=== PATIENT | male | born 1960 | race Caucasian/White ===

== ENCOUNTER → 2017-12-07 08:10 | Outpatient (CLI) | payer OTHER, SELFPAY ==
[2017-12-07 10:48] LABS: Anion Gap 9 (5-15); BUN 17 mg/dL (7-18); BUN/Creat Ratio 20.8 RATIO (10-20); Calcium,Total 8.9 mg/dL (8.5-10.1); Chloride 105 mmol/L (98-107); Cholesterol 212 mg/dL (200); Creatinine, Serum 0.82 mg/dL (0.70-1.30); EST Glomerular Filtration Rate 103 mL/min (>60); Est Glom Filt Rate - Afr Amer 124 mL/min (>60); Glucose 132 mg/dL (74-106); High Density Lipoprotein 43 mg/dL; PSA,Total - Annual Screen 2.24 ng/mL (0.00-4.00); Potassium 3.9 mmol/L (3.5-5.1); Sodium Level 136 mmol/L (136-145); Triglycerides 81 mg/dL; Very Low Density Lipoprotein 16 mg/dL (5-40)
== END ==
PROVIDERS: Family Provider Family Medicine; PCP Family Medicine; Visit Provider Family Medicine
DX: Z00.00 Encounter for general adult medical examination without abnormal findings (principal); N52.9 Male erectile dysfunction, unspecified
CPT/HCPCS: 36415; 80048; 80061; 84153; 84403; G0103

== ENCOUNTER → 2018-03-21 15:54 | Outpatient (CLI) | payer OTHER, SELFPAY ==
--- NOTE | 2018-03-21 | LES_PTH ---
PATIENT: ANA SONG LOC: [facility] U#:[id number] AGE/SX: 65/M ROOM: RE03/21/[address]: Dr. Eric Roa MD : 1960 BED: DIS: SPEC #: [id number] RECD: 03/22/18 13:21 STATUS: ZACH AGARWALShanthi #: [id number] JOE: 03/21/18 00:[address]: Eric Roa DEPT: SURGICAL PATHOLOGY RECD BY: Rashel Mg Tissues: A - Skin of back, NOS B - Skin of back, NOS C - Skin of back, NOS Procedures: Surgery Specimen Level IV HEADER OPERATION: Removal of three lesions, back and left side PRE-OP DIAGNOSIS: Neoplasm TISSUE SUBMITTED: A ? Upper back lesion, medial, B ? Upper back lesion, lateral, C ? Left lateral side lesion MICROSCOPIC DIAGNOSIS A. Upper back lesion, medial, shave biopsy: Seborrheic keratosis. B. Upper back lesion, lateral, shave biopsy: Actinic keratosis with focal verrucous features. C. Left lateral lesion, shave biopsy: Seborrheic keratosis. DANYELLE:winter 03/26/18 MICROSCOPIC DESCRIPTION Slides are reviewed. GROSS DESCRIPTION A - Received in fixative is one container labeled with the patient's name and designated upper back lesion medial. The specimen consists of a round piece of soliz-white skin measuring 0.6 x 0.5 x 0.1 cm. The specimen is inked and submitted in one cassette. It will be bisected at the time of embedding. B - Received in fixative is one container labeled with the patient's name and designated upper back lesion lateral. The specimen consists of a round piece of soliz-white skin measuring 0.5 x 0.5 x 0.1 cm. Also present in the specimen is a round piece of soliz-white skin measuring 0.4 x 0.4 x 0.1 cm. The larger piece is bisected. The entire specimen is submitted in one cassette. C - Received in fixative is one container labeled with the patient's name and designated left lateral side lesion. The specimen consists of a piece of soliz-white skin measuring 0.8 x 0.5 x 0.2 cm. The specimen is inked and submitted entirely in one cassette. It will be serially sectioned at the time of embedding. / DANYELLE:winter 03/22/18 TC:1 CPT: 70857 x3
== END ==
PROVIDERS: Family Provider Family Medicine; PCP Family Medicine; Visit Provider Family Medicine
DX: D49.9 Neoplasm of unspecified behavior of unspecified site (principal)
CPT/HCPCS: 88305

== ENCOUNTER → 2019-07-23 08:21 | Outpatient (CLI) | payer OTHER, SELFPAY ==
[2019-07-23 10:34] LABS: Anion Gap 4 (5-15); BUN 17 mg/dL (7-18); BUN/Creat Ratio 22.8 RATIO (10-20); Calcium,Total 8.8 mg/dL (8.5-10.1); Chloride 111 mmol/L (98-107); Cholesterol 194 mg/dL (200); Creatinine, Serum 0.74 mg/dL (0.70-1.30); EST Glomerular Filtration Rate 114 mL/min (>60); Est Glom Filt Rate - Afr Amer 138 mL/min (>60); Glucose 119 mg/dL (74-106); High Density Lipoprotein 40 mg/dL; Potassium 4.1 mmol/L (3.5-5.1); Sodium Level 140 mmol/L (136-145); Triglycerides 72 mg/dL; Very Low Density Lipoprotein 14 mg/dL (5-40)
== END ==
PROVIDERS: Family Provider Family Medicine; PCP Family Medicine; Referring Provider Family Medicine; Visit Provider Family Medicine
DX: I10 Essential (primary) hypertension (principal)
CPT/HCPCS: 36415; 80048; 80061

== ENCOUNTER 2020-04-26 09:42 | Day surgery (SDC) | payer OTHER, SELFPAY ==
[2020-04-15 08:30] VITALS: BMI 27.3
--- NOTE | 2020-04-15 09:07 | HP_ITS ---
Intake Vital Signs 04/15/20 Height 5 ft 11 in 04/15/20 Weight: 196 lb 04/15/20 BP 190/116 H 04/15/20 Blood Pressure Location Rt brachial 04/15/20 Position Sitting 04/15/20 Respiration 18 04/15/20 Pulse 86 04/15/20 Pulse Source Monitor 04/15/20 Temp 98.3 F 04/15/20 Temp Source Temporal 04/15/20 Pulse Oximetry (%) 98 04/15/20 Oxygen Delivery Method room air Intake Visit Reasons: R Inguinal Hernia Subassembler Required: No Is patient in pain?: No (Right groin pain- on and off) Allergies No Known Allergies Allergy (Verified 04/15/20 08:31) Medications metoprolol tartrate 25 mg tablet 25 mg PO BID tab 04/15/20 [History Confirmed 04/15/20] tadalafil 10 mg tablet 10 mg PO DAILY PRN tab 04/15/20 [History Confirmed 04/15/20] PFSH Medical History Right groin pain (Acute) ED (erectile dysfunction) (Acute) Hypertension (Chronic) Surgical History Hx of colonoscopy (Acute) Hx of left inguinal hernia repair (Acute) Family History Mother Breast cancer Cancer skin Father Heart disease Social History (Updated 04/15/20 @ 09:[address] Nathaly Do MD) Smoking Status: Current every day smoker tobacco type: cigarettes alcohol intake: current alcohol intake frequency: 0-2 drinks per day Alcohol type: hard liquor substance use type: does not use caffeine: Yes what type of physical activity do you participate in: none frequency: does not exercise HPI HPI HPI: ANA SONG, is a 60 M who presents to the office today for HPI HPI Surgical H&P: Yes HPI: ANA SONG, is a 60 M who presents to the office today for right inguinal hernia. Patient states he noticed it about in November it is reducible. Patient states the pain can range from a 5?8/10. Patient denies any nausea or vomiting and has been having bowel function. 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 Currently he is not lifting as part of his job however he does state that even with increased standing he does cause him discomfort. Patient previously had a left inguinal hernia repair open in 96 and stated postoperatively he had pain for 7 to 8 weeks. Patient states he has not been taking his blood pressure medicine the metoprolol 25 mg p.o. twice daily as scheduled and may be only had it once over the last couple days. Patient's blood pressure in office was 190s and 200 for systolic. ROS General General: No weight change, appetite, fatigue, colon cancer, breast cancer or weakness HEENT HEENT: No difficulty swallowing, eye injury, eye surgery, swollen glands or hoarseness Endo Endocrine: No thyroid disease, diabetes mellitus, thyroid cancer, Hair loss, heat intolerance or cold intolerance Skin Skin: No rash or changing moles Musc Musculoskeletal: No back problems, arthritis, rheumatoid arthritis, gout or joint pain Cardio Cardiovascular: Yes high blood pressure; no murmur, pacemaker, heart disease, atrial fibrillation, heart attack, heart stent, palpitations, shortness of breat with exertion or chest pain Psych Psychiatric: No depression, anxiety or hearing voices Resp Respiratory: No shortness of breath, No sleep apnea, No cough, No COPD, No asthma, No emphysema, No wheezing Gastro Gastrointestinal: No abdominal pain, No nausea or vomiting, No diarrhea, No constipation, No blood in stool, No acid reflux, No hemorrhoids, No ulcers, No gallbladder problem, No black,tarry stools Dick Hematologic: No blood thinners, No blood disorders, No bleeding, No anemia, No blood clots Neuro Neurologic: No weakness Exam Const General: cooperative, comfortable, no acute distress Resp Effort & Inspection: normal respiratory effort Cardio Rate: regular rate Heart Sounds: no murmurs GI Inspection: non-distended Palpation: soft, nontender Other: Left groin well-healed incision, no hernia on exam, right groin reducible inguinal hernia, mild tenderness palpation Assessment & Plan Problems 1. Right inguinal hernia K40.90 2. HTN (hypertension) I10 Plan Plan to do a laparoscopic right inguinal hernia repair with mesh. Reviewed the procedure with the patient including the risks, including but not limited to infection, bleeding, paresthesia, chronic pain, injury to small bowel or contents of the spermatic cord, and recurrence. All questions were answered. Discussed with patient the importance of taking his blood pressure medicine as scheduled. Discussed that if he presents to surgery with systolics in the 200s he may be canceled. Patient states he will be taking his metoprolol twice a day. Nathaly Do M.D. Pager: [phone] [facility] [address] [place] [address], [facility], [address] [place] [address] Office: [phone] Plan Detail Follow Up will schedule hernia repair Coding Level of Care Code Off vis,new,level 3 Diagnoses Right inguinal hernia K40.90 HTN (hypertension) I10 04/15/20 0907 <Electronically signed by Nathaly Elizabeth am, MD> Date _ Nathaly Do MD I have re-examined the patient. There are no clinical changes since date of exam. Procedure: Elective We discussed the current risks associated with COVID-19. While it is understood that there is a community spread of COVID-19, the risk of jose carlos COVID-19 while at [facility] ([facility]) is very low; however, the risk cannot be completely mitigated because of the community spread of the disease. We discussed in detail the risk of exposure to and/or potential harm posed by the COVID-19 virus with having a surgery/procedure at this time versus the risk of delaying the surgery/procedure. It is not possible to know either the risk of delaying the surgery or procedure or chance of getting an infection with perfect accuracy, but a joint decision was made to proceed at this time with the scheduled surgery/procedure as indicated on the consent form. Patient was notified that we will need to comply with any screening or testing [facility] wishes to perform or that surgery may be delayed for any positive results.
[2020-04-26] VITALS (8 sets, daily range): BP systolic 139–178; BP diastolic 71–96; PULSE 55–66; RESP 16–18; TEMP 36.1–37.1; O2SAT 92–99; BMI 27.1
[2020-04-26 10:25] LABS: Hemoglobin 16.1 g/dL (13.0-16.5); Mean Corp Hgb Conc 32.9 g/dL (32-36); Mean Corpuscular Hgb 32.7 pg (27.0-32.0); Mean Corpuscular Volume 99.4 fL (80-94); Platelet Count 277 K/mm3 (150-450); RBC Distribution Width CV 13.7 % (11.6-14.6); RBC Distribution Width SD 50.3 fl (35.1-43.9); Red Blood Count 4.93 M/mm3 (4.6-6.2); White Blood Count 6.8 K/mm3 (4.4-11.0)
[2020-04-26] MEDS: Lactated Ringers 1,000 ML 100 ML IV ×2 (10:30→14:32)
--- NOTE | 2020-04-26 11:20 | EKG12_ITS ---
Test Reason : PRE-OP Blood Pressure : / mmHG Vent. Rate : 057 BPM Atrial Rate : 057 BPM P-R Int : 154 ms QRS Dur : 100 ms QT Int : 442 ms P-R-T Axes : 047 066 065 degrees QTc Int : 430 ms Sinus bradycardia Otherwise normal ECG When compared with ECG of 02-DEC-2007 09:35, MANUAL COMPARISON REQUIRED, DATA IS UNCONFIRMED Confirmed by GERARDO GONCALVES ([id number]), production editor AMITA BUTCHER ([id number]) on 04/29/2020 12:05:19 PM Referred By: Nathaly Do Confirmed By:GERARDO GONCALVES
[2020-04-26] MEDS: Cefazolin 2 GM in 0.9% Normal Saline 100 ML IV (11:55)
[2020-04-26] MEDS: Bupivacaine Mpf 0.5% 30 ML VIAL (13:20)
--- NOTE | 2020-04-26 13:24 | PCM.OPRPT ---
Report of Operation Date of Procedure: 04/26/20 Pre-Operative Diagnosis: Right inguinal hernia Post-Operative Diagnosis: Same Surgery/Procedure Performed:: Laparoscopic right inguinal hernia repair with mesh education professional: Christi Perdue Type of Anesthesia:: General/Supplemental Anesthesiologist: Altaf Lopez Special Medications: Ancef 2 g IV x1 Specimen's removed: None Estimated Blood Loss (mL): < 10 cc Fluids Replaced: 1500 cc Description of Procedure: Indications: 60-year-old male presented with right inguinal hernias which was symptomatic. Laparoscopic right inguinal hernia repair with mesh was elected patient was agreeable. Description of procedure: Patient was brought to operating room placed supine operative table. Timeout was completed verifying correct patient, procedure, site, positioning, special, prior to beginning procedure. General anesthesia was induced. Rondon catheter was placed. Patient's arms were tucked and padded appropriately. Abdomen was prepped and draped in usual sterile fashion. Midline supraumbilical incision was made with a 15 blade scalpel. The fascia was elevated and incised. Entry into the abdomen was confirmed visually. The Portillo trocar was placed. Laparoscope was placed. Verifying no injury during initial trocar placement. Patient was placed in Trendelenburg position. Two 5 mm trochars were placed lateral to the rectus sheath under direct visualization. Both the inguinal regions were inspected. There is noted to be a right inguinal hernia, no obvious left inguinal hernia- repaired with previous open repair. The median umbilical ligament on the right was divided sharply with electrocautery. Peritoneum was incised with the endoscopic scissors along a line 2 cm above the superior edge of the hernia defect extending from the median umbilical ligament to anterior superior iliac spine. Peritoneal flap was mobilized inferiorly using blunt and sharp dissection. The inferior epigastric vessels were exposed and symphysis pubis and identified. Jeremy's ligament was identified. Dissection was continued inferiorly to the iliopubic track with care taken to avoid injury to the femoral branch of the genitofemoral nerve and lateral femoral cutaneous nerve. The cord structures were skeletonized. The indirect hernia sac was noted and mobilized from the cord structures and reduced into the peritoneal cavity. A large size Bard 3D max mesh right was used. The mesh was rolled longitudinally into a compact cylinder and passed through the trocar. The cylinder was placed along the inferior aspect of the working space and unrolled into place to completely cover the direct, indirect and femoral spaces. The mesh was secured in place medially to Jeremy's ligament using the securestrap as well as to the anterior abdominal wall. The peritoneum was also secured back in place using the secure strap. Care was taken to avoid the inferolateral triangle containing iliac vessels and genital nerves. After ensuring adequate hemostasis, the trochars were removed and pneumoperitoneum allowed to escape. The supraumbilical trocar incision was closed with a 0 Vicryl figure of eight suture. The skin was closed with 4-0 Monocryl interrupted sutures and Steri-Strips. Patient's testicles are also confirmed in the scrotum bilaterally. Patient tolerated procedure well was taken to the postanesthesia care unit in stable condition. Grafts/Implants Used: Right large Bard 3D max lot [id number] ref [id number] Grafts/Implants Used: Right large Bard 3D max (lot [id number] ref [id number]) - Complications none
--- NOTE | 2020-04-26 14:15 | DCINST_ITS ---
Discharge Diet: Light diet - advance as tolerated Discharge Activity: May not drive while taking narcotic pain medications. May shower in (days): 1 Ice area for (Minutes): 20 - PRN Lifting Restrictions: No lifting greater than 20 pounds x 2 weeks Additional Activity Instructions:: Okay to walk and do steps Call your doctor if your incision/area has: Continuous Slow Oozing, Sudden Increased Bleeding, Increased Pain/ Swelling, Increased Redness, Foul Smelling Discharge, Swelling at the incision site Call your doctor if you observe: Fever of 101 or Higher Remove Dressing in (days):: 1 - Okay to remove OpSite tomorrow keep Steri-Strips on for 7 to 10 days until they fall off okay to remove after 10 days. Additional Instructions: Okay to take ibuprofen 400-600 (can go up to 800 if needed-for short term only) mg PO q6hr PRN along with the Percocet. Avoid Tylenol since there is already Tylenol in the Percocet. Take all pain meds with food. Percocet can cause constipation recommend taking daily stool softener (i.e. Colace/docusate) while taking the pain meds. Recommend starting some MiraLAX in 1 to 2 days if no bowel movement. If still no bowel movement following day recommend taking magnesium citrate half the bottle and waiting 4-6 hours if still no results take the other half the bottle. OK to return to work 05/10/20, will have f/u appt week of May 03- call to make appt Allergies/Adverse Reactions: Allergies No Known Allergies Allergy (Verified 04/26/20 09:54) Medications to take at Discharge metoprolol tartrate 25 mg tablet 25 mg PO BID tab 04/15/20 tadalafil 10 mg tablet 10 mg PO DAILY PRN tab 04/15/20 Oxycodone HCl/Acetaminophen [Percocet 5/325] 1 - 2 tab PO Q6H PRN PRN 6 Days #30 tab 04/26/20 The following prescriptions were given: Oxycodone HCl/Acetaminophen [Percocet 5/325] 1 - 2 tab PO Q6H PRN PRN 6 Days #30 tab PRN Reason: Pain Transmission Status: Received by [facility] Primary Care Physician: Eric Roa MD [Primary Care Provider] - Test Results: Test results from this visit will be discussed in further detail at your follow- up appointment, if applicable. Please Follow Up With: Nathaly Do MD - After 5 PM and on the weekends call [phone]. When: Call the office for a follow-up appointment in 2 weeks from surgery Proposed Discharge Date: 04/26/20
[2020-04-26] MEDS: Acetaminophen 325 MG Tablet PO (15:15)
[2020-04-26] MEDS: oxyCODONE 5 MG Tablet PO (15:15)
== END 2020-04-26 16:03 | disposition home or self-care (01) ==
LOC: SDC 09:51 → AC 10:02
PROVIDERS: Anesthesiology; PCP Family Medicine; Referring Provider Surgery; Visit Provider Surgery
PROC: (CPT 49650; principal; 2020-04-26 11:10)
DX: K40.90 Unilateral inguinal hernia, without obstruction or gangrene, not specified as recurrent (principal); I10 Essential (primary) hypertension; Z11.59 Encounter for screening for other viral diseases; F17.210 Nicotine dependence, cigarettes, uncomplicated; Z79.899 Other long term (current) drug therapy
CPT/HCPCS: 00840; 49650; 36415; 85027; 87635; 93005; G2023; J7120; C1781; J2405; U0003

== ENCOUNTER → 2020-10-04 | Outpatient (CLI) | payer OTHER, SELFPAY ==
[2020-04-26 10:08] VITALS: BMI 27.1
== END | disposition home or self-care (01) ==
PROVIDERS: PCP Family Medicine; Visit Provider Family Medicine
DX: U07.1 COVID-19 (principal)
CPT/HCPCS: 87635; U0003

== ENCOUNTER → 2021-04-22 10:53 | Outpatient (CLI) | payer OTHER, SELFPAY ==
[2020-04-26 10:08] VITALS: BMI 27.1
[2021-04-22 12:57] LABS: Vitamin D,25 Hydroxy 24.4 ng/mL
[2021-04-22 13:09] LABS: ALB/GLOB Ratio 0.9 RATIO (0.9-2.4); AST(SGOT) 23 U/L (15-37); Alanine Aminotransfer ALT/SGPT 21 U/L (16-61); Albumin, Serum 3.6 g/dL (3.2-5.0); Alkaline Phosphatase 60 U/L (45-117); Anion Gap 8 (5-15); BUN 13 mg/dL (7-18); BUN/Creat Ratio 14.7 RATIO (10-20); Calcium,Total 8.7 mg/dL (8.5-10.1); Chloride 108 mmol/L (98-107); Cholesterol 245 mg/dL (200); Creatinine, Serum 0.88 mg/dL (0.70-1.30); EST Glomerular Filtration Rate 93 mL/min (>60); Est Glom Filt Rate - Afr Amer 113 mL/min (>60); Globulin 4.1 g/dL (2.2-4.2); Glucose 93 mg/dL (74-106); High Density Lipoprotein 40 mg/dL; PSA,Total - Annual Screen 0.95 ng/mL (0.00-4.00); Potassium 3.7 mmol/L (3.5-5.1); Protein, Total 7.7 g/dL (6.4-8.2); Sodium Level 140 mmol/L (136-145); Triglycerides 158 mg/dL; Very Low Density Lipoprotein 32 mg/dL (5-40)
== END ==
PROVIDERS: PCP Family Medicine; Referring Provider Family Medicine; Visit Provider Family Medicine
DX: Z00.00 Encounter for general adult medical examination without abnormal findings (principal)
CPT/HCPCS: 36415; 80053; 80061; 82306; 84153; 84403; G0103

== ENCOUNTER → 2021-09-05 | Outpatient (CLI) | payer OTHER, SELFPAY | END | disposition home or self-care (01) | PROVIDERS: PCP Family Medicine; Visit Provider Family Medicine | DX: Z20.822 Contact with and (suspected) exposure to COVID-19 (principal) | CPT/HCPCS: 87635; U0005; U0003 ==

== ENCOUNTER → 2023-10-01 | Outpatient (CLI) | payer OTHER, SELFPAY ==
[2023-10-01 18:03] LABS: Absolute Lymphocyte Count 2.27 X10^3/uL (0.83-4.51); Absolute Neutrophil Count 5.1 X10^3/uL (2.0-7.7); Basophil# 0.04 X10^3/uL; Basophil% 0.5 % (0-1); Eosinophil# 0.17 X10^3/uL; Hematocrit 45.6 % (40-54); Hemoglobin 15.3 g/dL (13.0-16.5); Lymphocyte # 2.27 X10^3/ul (0.83-4.51); Lymphocyte % 26.9 % (19-41); Mean Corp Hgb Conc 33.6 g/dL (32-36); Mean Corpuscular Hgb 33.6 pg (27.0-32.0); Mean Corpuscular Volume 100.2 fL (80-94); Mean Platelet Vol. 9.8 fl (6.2-12.0); Monocyte# 0.84 X10^3/uL; NRBC Flagged by Analyzer 0 % (0-5); Neutrophil # 5.07 X10^3/uL (2.7-7.7); Platelet Count 258 K/mm3 (150-450); RBC Distribution Width CV 13.2 % (11.6-14.6); RBC Distribution Width SD 48.9 fl (35.1-43.9); Red Blood Count 4.55 M/mm3 (4.6-6.2); White Blood Count 8.4 K/mm3 (4.4-11.0)
[2023-10-01 18:19] LABS: ALB/GLOB Ratio 0.8 RATIO (0.9-2.4); AST(SGOT) 26 U/L (15-37); Alanine Aminotransfer ALT/SGPT 20 U/L (16-61); Albumin, Serum 3.3 g/dL (3.2-5.0); Alkaline Phosphatase 54 U/L (45-117); Anion Gap 7 (5-15); BUN 10 mg/dL (7-18); BUN/Creat Ratio 12.2 RATIO (10-20); Calcium,Total 8.7 mg/dL (8.5-10.1); Chloride 109 mmol/L (98-107); Cholesterol 199 mg/dL (200); Creatinine, Serum 0.82 mg/dL (0.70-1.30); EST Glomerular Filtration Rate 101 mL/min (>60); Est Glom Filt Rate - Afr Amer 122 mL/min (>60); Globulin 4.2 g/dL (2.2-4.2); Glucose 103 mg/dL (74-106); High Density Lipoprotein 63 mg/dL; Potassium 3.4 mmol/L (3.5-5.1); Protein, Total 7.5 g/dL (6.4-8.2); Sodium Level 140 mmol/L (136-145); Triglycerides 60 mg/dL; Very Low Density Lipoprotein 12 mg/dL (5-40)
== END | disposition home or self-care (01) ==
LOC: MFPLAB 14:35
PROVIDERS: PCP Family Medicine; Visit Provider Family Medicine
DX: I10 Essential (primary) hypertension (principal); R63.4 Abnormal weight loss
CPT/HCPCS: 36415; 80053; 80061; 84443; 85025

== ENCOUNTER → 2025-09-09 | Outpatient (CLI) | payer OTHER, SELFPAY ==
[2025-09-09 18:25] LABS: Anion Gap 13 (5-15); BUN 13 mg/dL (4-19); BUN/Creat Ratio 15.1 RATIO (10-20); Calcium,Total 9.4 mg/dL (7.6-11.0); Carbon Dioxide 21.5 mmol/L (21.0-32.0); Chloride 103 mmol/L (98-108); Cholesterol 207 mg/dL (<=200); Glucose 98 mg/dL (70-99); Low Density Lipoprotein Calc. 155 mg/dL; PSA,Total - Annual Screen 1.13 ng/mL (0.02-4.00); Potassium 4.1 mmol/L (3.3-5.1); Triglycerides 75 mg/dL; Very Low Density Lipoprotein 15 mg/dL (5-40); cholesterol:hdl ratio screen 5.35
== END | disposition home or self-care (01) ==
LOC: MTLAB 15:54
PROVIDERS: PCP Family Medicine; Referring Provider Family Medicine; Visit Provider Family Medicine
DX: Z00.00 Encounter for general adult medical examination without abnormal findings (principal)
CPT/HCPCS: 36415; 80048; 80061; 84153; G0103

== ENCOUNTER → 2025-09-17 | Outpatient (CLI) | payer OTHER, SELFPAY ==
--- NOTE | 2025-09-17 16:30 | LES_PTH ---
PATIENT: ANA SONG LOC: [facility] U#:[id number] AGE/SX: 65/M ROOM: RE09/17/[address]: Dr. Eric Roa MD : 1960 BED: DIS: 09/17/2025 SPEC #: [id number] RECD: 09/17/25 17:38 STATUS: ZACH JESSE #: [id number] JOE: 09/17/25 16:[address]: Eric Roa DEPT: SURGICAL PATHOLOGY RECD BY: Andrei Tierney Tissues: A - Back, NOS Procedures: Surgery Specimen Level IV HEADER OPERATION: Biopsy - back PRE-OP DIAGNOSIS: Neoplasm - back, 1.5cm, elliptical excision biopsy TISSUE SUBMITTED: A- Neoplasm 1.5cm MICROSCOPIC DIAGNOSIS A. 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 GROSS DESCRIPTION A. Received in formalin labeled with the patient's name and date of . Designated as neoplasm is a 1.3 x 0.9 x 0.1 cm soliz skin shave, devoid of orientation. The resection margin is inked green. There is a 1.0 x 0.7 cm soliz-white, firm raised lesion with a central scab and irregular borders, comprising approximately 90% of the epidermal surface and grossly abutting the peripheral edge. The specimen is serially sectioned and entirely submitted in cassette CT 09/18/2025 CPT:90503
== END | disposition home or self-care (01) ==
LOC: LABSPEC 17:46
PROVIDERS: PCP Family Medicine; Referring Provider Family Medicine; Visit Provider Family Medicine
DX: D48.11 Desmoid tumor (principal)
CPT/HCPCS: 88305

== ENCOUNTER → 2025-09-17 | Outpatient (CLI) | payer OTHER, SELFPAY ==
--- NOTE | 2025-09-17 09:38 | US_ITS ---
PROCEDURE: TESTICULAR WITH ARTERIAL FLOW 09/17/2025 REASON FOR EXAM: TESTICULAR MASS Left testicular mass. TECHNIQUE: Procedure Code: USTES Modality: US Procedure: TESTICULAR WITH ARTERIAL FLOW FINDINGS: RIGHT testicle: 3.9 cm x 3 cm x 2.2 cm Homogeneous echotexture. Right epididymis: 0.9 cm 0.8 cm 1 cm. Multiple small cysts are seen the largest measures 4 mm x 4 mm x 3 mm. LEFT testicle: 4.2 cm x 2.9 cm x 2.1 cm Homogeneous echotexture. Left epididymis: 0.7 cm 1.1 cm 1.1 cm. Other findings: Small left hydrocele. US/Testicular with Arterial Flow IMPRESSION: Small left hydrocele. Epididymal cysts seen in the right epididymis. Reading Location: [id number]
== END | disposition home or self-care (01) ==
LOC: US 09:36
PROVIDERS: PCP Family Medicine; Referring Provider Family Medicine; Visit Provider Family Medicine
DX: N50.89 Other specified disorders of the male genital organs (principal)
CPT/HCPCS: 76870; 93976